=== PATIENT | male | born 1995 | race Caucasian/White ===

== ENCOUNTER 2021-03-10 08:20 | Emergency (ER) | payer BC ==
[~2021-03-10] VITALS: Ht 195.6 cm; Wt 88.5 kg
[2021-03-10 08:22] VITALS: BP 137/72
--- NOTE | 2021-03-10 08:22 | NUR ---
26 Y/O M BIB SELF FROM HOME, PT STATES HE WAS WORKING THIS MORNING AND WAS CUTTING SOMETHING WITH A KNIFE, CUT TOWARDS HIMSELF AND ACCIDENTALLY CUT HIS L ARM. LAC SITE 3 CM NEAR L AC, BLEEDING CONTROLLED, NO DISCHARGE, ADIPOSE TISSUE EXPOSED. DENIES N/V/D; SKIN IS PINK/WARM/DRY; AAOX4 WITH EVEN AND STEADY GAIT; LUNGS CLEAR BL; HR EVEN AND REGULAR; PT DENIES ANY FEVER, CP, SOB, OR COUGH AT THIS TIME; PATIENT STATES PAIN OF 1/10 AT THIS TIME; VSS; PATIENT POSITIONED FOR COMFORT; HOB ELEVATED; BEDRAILS UP X2; BED DOWN. ER MD MADE AWARE OF PT STATUS. PMH: DENIES NKA
--- NOTE | 2021-03-10 08:26 | NUR ---
Pt ambulated to ER bed 3 with a steady gait.
[2021-03-10] MEDS ORDERED: LIDOCAINE/EPI 1% 1:100000 20 ML VIAL INJ ONE ×2 (08:31→08:40)
--- NOTE | 2021-03-10 08:59 | NUR ---
APPLIED DRESSING TO LEFT ARM WITHOUT ANY ISSUES
[2021-03-10 09:08] VITALS: BP 137/72
--- NOTE | 2021-03-10 09:09 | NUR ---
Patient discharged with v/s stable. Written and verbal after care instructions given and explained. Patient verbalized understanding. Ambulatory with steady gait. All questions addressed prior to discharge. Advised to follow up with PMD.
== END 2021-03-10 09:09 | disposition home or self-care (01) ==
LOC: MED 08:20
DX: S51.012A Laceration without foreign body of left elbow, initial encounter (principal); W26.0XXA Contact with knife, initial encounter; Y93.89 Activity, other specified; Y92.89 Other specified places as the place of occurrence of the external cause; Y99.0 Civilian activity done for income or pay
CPT/HCPCS: 12002; 90471; 90715; 99283; J2001